=== PATIENT | male | born 1970 | race Caucasian/White ===

== ENCOUNTER → 2018-09-26 | Outpatient (CLI) | payer OTHER ==
--- NOTE | 2018-09-27 12:11 | XR ---
Sinus series HISTORY: Right sinus pain 5 views of the sinuses Sinuses are well aerated. Orbits are intact. Bone mineralization is normal. Mastoid air cells appear well aerated. There is a deviated nasal septum present. IMPRESSION: Correlate for point tenderness, sinus CT would be of increased sensitivity.
== END | disposition home or self-care (01) ==
LOC: RADXRMAIN 17:07
PROVIDERS: ATTEND Internal Medicine
DX: J34.0 Abscess, furuncle and carbuncle of nose (principal)
CPT/HCPCS: 70220